=== PATIENT | male | born 1990 | race African-American/Black ===

== ENCOUNTER 2020-12-26 16:24 | Emergency (ER) | payer MEDICAID, OTHER ==
[~2020-12-26] VITALS: Ht 180.3 cm; Wt 81.8 kg
[~2020-12-26 16:24] MED LIST: PAXI20TA OR; TRAZ-252 PO; TRAZ100T OR; no home medications
--- NOTE | 2020-12-26 18:05 | REPVR ---
PROCEDURE INFORMATION: Exam: CT Head Without Contrast Exam date and time: 12/26/2020 5:40 PM Age: 30 years old Clinical indication: Syncope and collapse TECHNIQUE: Imaging protocol: Computed tomography of the head without contrast. Radiation optimization: All CT scans at this facility use at least one of these dose optimization techniques: automated exposure control; mA and/or kV adjustment per patient size (includes targeted exams where dose is matched to clinical indication); or iterative reconstruction. COMPARISON: No relevant prior studies available. FINDINGS: Brain: Normal. No hemorrhage. Unremarkable white matter. No mass effect. Cerebral ventricles: No ventriculomegaly. Paranasal sinuses: Visualized sinuses are unremarkable. No fluid levels. Mastoid air cells: Visualized mastoid air cells are well aerated. Orbital cavity: Left periorbital preseptal soft tissue hematoma. Bones/joints: There is hyperostosis frontalis interna. Soft tissues: Unremarkable. IMPRESSION: 1. Left periorbital preseptal soft tissue hematoma. No skull fracture. 2. No acute intracranial findings. Electronically signed by: Aníbal Watkins On 12/26/2020 18:05:00 PM
--- NOTE | 2020-12-26 18:07 | REPVR ---
PROCEDURE INFORMATION: Exam: CT Maxillofacial Without Contrast Exam date and time: 12/26/2020 5:40 PM Age: 30 years old Clinical indication: Other: Syncope TECHNIQUE: Imaging protocol: Computed tomography images of the face without contrast. Radiation optimization: All CT scans at this facility use at least one of these dose optimization techniques: automated exposure control; mA and/or kV adjustment per patient size (includes targeted exams where dose is matched to clinical indication); or iterative reconstruction. COMPARISON: No relevant prior studies available. FINDINGS: Orbital cavity: Left frontal and preseptal periorbital soft tissue hematoma. Bones/joints: There is hyperostosis frontalis interna. Paranasal sinuses: Mild inflammatory changes in both maxillary sinuses. Soft tissues: Unremarkable. IMPRESSION: 1. Left frontal and preseptal periorbital soft tissue hematoma. No skull fracture. 2. Otherwise unremarkable. Electronically signed by: Aníbal Watkins On 12/26/2020 18:07:23 PM
--- NOTE | 2020-12-26 18:13 | REPVR ---
PROCEDURE INFORMATION: Exam: CT Cervical Spine Without Contrast Exam date and time: 12/26/2020 5:40 PM Age: 30 years old Clinical indication: Other: Syncope TECHNIQUE: Imaging protocol: Computed tomography images of the cervical spine without contrast. Radiation optimization: All CT scans at this facility use at least one of these dose optimization techniques: automated exposure control; mA and/or kV adjustment per patient size (includes targeted exams where dose is matched to clinical indication); or iterative reconstruction. COMPARISON: No relevant prior studies available. FINDINGS: Bones/joints: No acute fracture. Normal alignment. Discs/Spinal canal/Neural foramina: No significant disc protrusion. No severe spinal canal stenosis. No significant neural foraminal narrowing. Sinuses: Mild inflammatory changes in the maxillary sinuses. Lungs: Lung apices are normal. Soft tissues: Unremarkable. IMPRESSION: No acute findings. Electronically signed by: Aníbal Watkins On 12/26/2020 18:12:41 PM
[2020-12-26 18:19] LABS: BASO # 0.1 10^3/uL (0.0-0.2); BASO % 0.6 % (0.0-1.0); EOS % 0.3 % (0.0-3.0); HEMATOCRIT 44.9 % (42.0-52.0); LYMPH # 0.8 10^3/uL (1.5-5.0); LYMPH % 7.1 % (24.0-44.0); MEAN CORPUSCULAR HGB CONC 33.4 g/dl (32.0-36.5); MEAN CORPUSCULAR VOLUME 92.8 fl (80.0-96.0); MONO % 8.6 % (2.0-8.0); NEUTROPHILS # 9.6 10^3/uL (1.5-8.5); PLATELET COUNT, AUTOMATED 297 10^3/uL (150-450); RED BLOOD COUNT 4.84 10^6/uL (4.30-6.10); WHITE BLOOD COUNT 11.5 10^3/uL (4.0-10.0)
--- NOTE | 2020-12-26 18:52 | REP ---
INDICATION: syncope COMPARISON: 12/21/2013. TECHNIQUE: PA/Lateral FINDINGS: Lungs: Clear, no infiltrate. Heart: Normal in size. Mediastinum: Mediastinal silhouette unremarkable. Pleural angles: Unremarkable.. Bones and soft tissues: Unremarkable. IMPRESSION: No acute pulmonary disease. <Electronically signed by Kaushal Cervantes > 12/26/20 [id number]
[2020-12-26 18:55] LABS: BLOOD UREA NITROGEN 7 MG/DL (7-18); CALCIUM LEVEL 10.1 MG/DL (8.5-10.1); CARBON DIOXIDE LEVEL 26 MEQ/L (21-32); CHLORIDE LEVEL 102 MEQ/L (98-107); CK-MB VALUE MASS 3.9 NG/ML (<3.6); CPK CREATINE PHOSPHOKINASE 305 U/L (39-308); CREATININE FOR GFR 1.07 MG/DL (0.70-1.30); ETHYL ALCOHOL (ETHANOL) < 0.003 % (0.000-0.010); FREE T4 1.26 NG/DL (0.76-1.46); GLOMERULAR FILTRATION RATE > 60.0 (>60); GLUCOSE, FASTING 102 MG/DL (70-100); MAGNESIUM LEVEL 2.2 MG/DL (1.8-2.4); MB/CK RELATIVE INDEX 1.28 (< OR =4); POTASSIUM SERUM 4.2 MEQ/L (3.5-5.1); SODIUM LEVEL 137 MEQ/L (136-145); TROPONIN I < 0.02 NG/ML (< 0.10)
[2020-12-26] MEDS ORDERED: NS 1,000 ML IV ONE (19:05)
[2020-12-26 22:00] VITALS: BP 155/96
--- NOTE | 2020-12-29 16:32 | ECGEPIP ---
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
== END 2020-12-26 22:08 | disposition home or self-care (01) ==
LOC: M ED 16:24 → EDBD 16:24 → M ED 22:08
DX: S09.90XA Unspecified injury of head, initial encounter (principal); R55 Syncope and collapse; R00.0 Tachycardia, unspecified; X58.XXXA Exposure to other specified factors, initial encounter; Y92.9 Unspecified place or not applicable; Y93.01 Activity, walking, marching and hiking; Y99.9 Unspecified external cause status; J45.909 Unspecified asthma, uncomplicated; F17.200 Nicotine dependence, unspecified, uncomplicated; Z79.899 Other long term (current) drug therapy; Z88.8 Allergy status to other drugs, medicaments and biological substances

== ENCOUNTER 2023-07-21 20:20 | Inpatient (IN) | payer MEDICAID, SELFPAY ==
[~2023-07-21] VITALS: Ht 172.7 cm; Wt 87.1 kg
[2023-07-21] MEDS ORDERED: LORazepam 2 MG TAB PO PRN (21:10)
[2023-07-21 21:34] LABS: HEMATOCRIT 46.2 % (42.0-52.0); HEMOGLOBIN 15.3 g/dl (13.5-17.5); MEAN CORPUSCULAR HEMOGLOBIN 29.9 pg (27.0-33.0); MEAN CORPUSCULAR HGB CONC 33.1 g/dl (32.0-36.5); MEAN CORPUSCULAR VOLUME 90.2 fl (80.0-96.0); PLATELET COUNT, AUTOMATED 408 10^3/uL (150-450); RED BLOOD COUNT 5.12 10^6/uL (4.30-6.10); WHITE BLOOD COUNT 9.7 10^3/uL (4.0-10.0)
[2023-07-21] MEDS: THIAMINE 100 MG TAB PO SCH (21:39)
[2023-07-21] MEDS ORDERED: HOME MED LIST COMPLETE! XX SCH (21:45)
[2023-07-21 21:52] LABS: BARBITURATES URINE NEGATIVE (NEGATIVE)
[2023-07-21 21:53] LABS: AMPHETAMINES LEVEL URINE NEGATIVE (NEGATIVE); BENZODIAZEPINES URINE NEGATIVE (NEGATIVE); CANNABINOIDS URINE NEGATIVE (NEGATIVE); COCAINE METABOLITE URINE NEGATIVE (NEGATIVE); METHADONE URINE NEGATIVE (NEGATIVE); OPIATES URINE NEGATIVE (NEGATIVE); PHENCYCLIDINE URINE NEGATIVE (NEGATIVE)
[2023-07-21 21:55] LABS: ETHYL ALCOHOL (ETHANOL) 0.287 % (0.000-0.010)
[2023-07-21 21:56] LABS: SALICYLATE LEVEL < 3.0 MG/DL (<30)
[2023-07-21 21:57] LABS: ALBUMIN 4.8 G/DL (3.2-5.2); ALKALINE PHOSPHATASE 86 U/L (46-116); ALT/SGPT 61 U/L (7.0-40); AST/SGOT 41 U/L (<34); BILIRUBIN,DIRECT 0.2 MG/DL (<0.4); BILIRUBIN,TOTAL 0.5 MG/DL (0.3-1.2); BLOOD UREA NITROGEN 13 MG/DL (9-23); CALCIUM LEVEL 9.8 MG/DL (8.5-10.1); CARBON DIOXIDE LEVEL 24 MMOL/L (20-31); CHLORIDE LEVEL 105 MMOL/L (98-107); CREATININE FOR GFR 0.85 MG/DL (0.70-1.30); GLOMERULAR FILTRATION RATE > 60.0 (>60); GLUCOSE, FASTING 93 MG/DL (60-100); POTASSIUM SERUM 4.3 MMOL/L (3.5-5.1); SODIUM LEVEL 137 MMOL/L (136-145)
[2023-07-22] MEDS: FOLIC ACID 1MG TAB PO SCH (09:00)
[2023-07-22] MEDS ORDERED: FOLIC ACID 1MG TAB PO SCH (09:00)
[2023-07-22] MEDS: THIAMINE 100 MG TAB PO SCH (09:00)
[2023-07-22] MEDS ORDERED: MULTIVITAMINS/MINERALS THERAP 1 TAB PO SCH (09:00)
[2023-07-22] MEDS: MULTIVITAMINS/MINERALS THERAP 1 TAB PO SCH (09:00)
[2023-07-22] MEDS ORDERED: MAALOX 30 ML SUSP *UDC PO PRN ×2 (11:30→11:35)
[2023-07-22] MEDS ORDERED: traZODone 50 MG TAB PO PRN (11:30)
[2023-07-22] MEDS ORDERED: diphenhydrAMINE 25MG CAP PO PRN (11:30)
[2023-07-22] MEDS ORDERED: MOM 30ML SUSPENSION UDC PO PRN ×2 (11:30→11:35)
[2023-07-22] MEDS ORDERED: ACETAMINOPHEN TAB 650MG DOSE (2X325MG) PO PRN (11:30)
[2023-07-22] MEDS ORDERED: IBUPROFEN 400MG TAB PO PRN (11:30)
[2023-07-22 13:41] VITALS: BP 152/91; TEMP 98; O2SAT 99
[2023-07-22 13:58] VITALS: BP 152/91
[2023-07-22] MEDS: traZODone 50 MG TAB PO PRN (20:35)
[2023-07-22 22:21] VITALS: BP 128/68
[2023-07-23 06:26] VITALS: BP 129/65
[2023-07-23 06:29] VITALS: BP 129/65; TEMP 98.4; O2SAT 99
[2023-07-23] MEDS: NICOTINE 21MG/24HR 1 EA TRANSDERMAL TD SCH (10:06)
[2023-07-23 16:07] VITALS: BP 138/87; TEMP 98.8; O2SAT 100
[2023-07-23] MEDS: ACETAMINOPHEN TAB 650MG DOSE (2X325MG) PO PRN (17:17)
[2023-07-23 17:33] VITALS: BP 141/89
[2023-07-23] MEDS: LORazepam 2 MG TAB PO PRN (17:39)
[2023-07-24 06:18] VITALS: BP 114/61; TEMP 98.2; O2SAT 99
[2023-07-24] MEDS: PARoxetine 20MG TABLET PO SCH (10:59)
[2023-07-24 16:28] VITALS: BP 138/84; TEMP 98.3; O2SAT 99
[2023-07-24 21:52] VITALS: BP 120/68
[2023-07-25 06:07] VITALS: BP 124/70
[2023-07-25] MEDS: diphenhydrAMINE 25MG CAP PO PRN (06:12)
[2023-07-25 06:16] VITALS: BP 124/70; TEMP 98.4; O2SAT 99
[2023-07-25 18:19] VITALS: BP 139/84; TEMP 98.3
[2023-07-26 06:20] VITALS: BP 106/63; TEMP 98.4; O2SAT 97
[2023-07-26] MEDS: IBUPROFEN 400MG TAB PO PRN (09:10)
[2023-07-26] MEDS: hydrOXYzine 50 MG TAB PO PRN (12:38)
[2023-07-26 18:48] VITALS: BP 127/71; TEMP 98.2
[2023-07-27 17:23] VITALS: BP 123/75; TEMP 97.8
[2023-07-27] MEDS: traZODone 100 MG TAB PO PRN (20:07)
[2023-07-28 06:20] VITALS: BP 136/64; TEMP 98.1; O2SAT 98
[2023-07-28] MEDS: ACAMPROSATE CALCIUM 333MG TABLET (CAMPRAL) PO SCH (09:36)
[2023-07-28 16:42] VITALS: BP 137/68; TEMP 97.2; O2SAT 99
[2023-07-29 16:32] VITALS: BP 127/62; TEMP 98.2; O2SAT 100
[2023-07-30 16:12] VITALS: BP 131/65; TEMP 98.2; O2SAT 100
[2023-07-31 16:03] VITALS: BP 118/68; TEMP 98.3; O2SAT 100
[2023-08-01] MEDS ORDERED: TRAZ-257 PO (10:16)
[2023-08-01] MEDS ORDERED: PARO20TA3 PO (10:16)
[2023-08-01] MEDS ORDERED: Multivitamins PO (10:16)
[2023-08-01] MEDS ORDERED: NICO21PAT TD (10:16)
[2023-08-01] MEDS ORDERED: HYDR50TA70 PO (10:16)
[2023-08-01] MEDS ORDERED: ACAM0.05 PO (10:16)
[2023-08-01] MEDS ORDERED: THERTAB52 PO (10:17)
[2023-08-01] MEDS: ACAMPROSATE CALCIUM 333MG TABLET (CAMPRAL) PO SCH (15:50)
[2023-08-01 17:57] VITALS: BP 119/69; TEMP 98.4
== END 2023-08-02 10:15 | disposition other institution (70) | DRG 754 ==
LOC: M ED 20:20 → M ED INP 07-22 11:32 → M PSY 07-22 13:23
PROVIDERS: ADMIT Psychiatry & Neurology Psychiatry; ATTEND Student in an Organized Health Care Education/Training Program
DX: F43.21 Adjustment disorder with depressed mood (principal); J45.909 Unspecified asthma, uncomplicated; F10.20 Alcohol dependence, uncomplicated; R45.851 Suicidal ideations; F17.200 Nicotine dependence, unspecified, uncomplicated; Z11.52 Encounter for screening for COVID-19; Z88.8 Allergy status to other drugs, medicaments and biological substances; Z56.0 Unemployment, unspecified; Z59.00 Homelessness unspecified; Z65.3 Problems related to other legal circumstances; Z63.0 Problems in relationship with spouse or partner; Z81.8 Family history of other mental and behavioral disorders; Z81.1 Family history of alcohol abuse and dependence; Z81.3 Family history of other psychoactive substance abuse and dependence

== ENCOUNTER 2023-08-25 12:56 | Inpatient (IN) | payer MEDICAID, OTHER ==
[~2023-08-25] VITALS: Ht 177.8 cm; Wt 83.1 kg
[~2023-08-25 12:56] MED LIST changes: +ACAM0.05 PO; +HYDR50TA70 PO; +Multivitamins PO; +NICO21PAT TD; +PARO20TA3 PO; +THERTAB52 PO; +TRAZ-257 PO
[2023-08-25 14:02] LABS: HEMATOCRIT 41.3 % (42.0-52.0); HEMOGLOBIN 13.9 g/dl (13.5-17.5); MEAN CORPUSCULAR HEMOGLOBIN 30.2 pg (27.0-33.0); MEAN CORPUSCULAR HGB CONC 33.7 g/dl (32.0-36.5); MEAN CORPUSCULAR VOLUME 89.6 fl (80.0-96.0); PLATELET COUNT, AUTOMATED 278 10^3/uL (150-450); RED BLOOD COUNT 4.61 10^6/uL (4.30-6.10); WHITE BLOOD COUNT 8.4 10^3/uL (4.0-10.0)
[2023-08-25 14:26] LABS: AMPHETAMINES LEVEL URINE NEGATIVE (NEGATIVE); BARBITURATES URINE NEGATIVE (NEGATIVE); CANNABINOIDS URINE NEGATIVE (NEGATIVE); METHADONE URINE NEGATIVE (NEGATIVE); OPIATES URINE NEGATIVE (NEGATIVE); PHENCYCLIDINE URINE NEGATIVE (NEGATIVE)
[2023-08-25 14:27] LABS: BENZODIAZEPINES URINE NEGATIVE (NEGATIVE); COCAINE METABOLITE URINE NEGATIVE (NEGATIVE)
[2023-08-25 14:30] LABS: ALKALINE PHOSPHATASE 86 U/L (46-116); ALT/SGPT 48 U/L (7.0-40); AST/SGOT 46 U/L (<34); BILIRUBIN,DIRECT 0.2 MG/DL (<0.4); BILIRUBIN,TOTAL 0.5 MG/DL (0.3-1.2); BLOOD UREA NITROGEN 9 MG/DL (9-23); CALCIUM LEVEL 9.2 MG/DL (8.5-10.1); CARBON DIOXIDE LEVEL 22 MMOL/L (20-31); CHLORIDE LEVEL 104 MMOL/L (98-107); CPK CREATINE PHOSPHOKINASE 157 U/L (46-171); CREATININE FOR GFR 0.79 MG/DL (0.70-1.30); GLOMERULAR FILTRATION RATE > 60.0 (>60); GLUCOSE, FASTING 112 MG/DL (60-100); POTASSIUM SERUM 3.7 MMOL/L (3.5-5.1); SALICYLATE LEVEL < 3.0 MG/DL (<30); SODIUM LEVEL 141 MMOL/L (136-145); TOTAL PROTEIN 7.1 G/DL (5.7-8.2)
[2023-08-25 15:00] LABS: THYROID STIMULATING HORMONE 0.497 uIU/ML (0.55-4.78)
[2023-08-25 15:23] LABS: ETHYL ALCOHOL (ETHANOL) 0.307 % (0.000-0.010)
[2023-08-25] MEDS: LORazepam 2 MG TAB PO PRN (15:55)
[2023-08-25] MEDS: ONDANSETRON 4MG ORAL DISINTEGRATING TAB PO ONE (15:56)
[2023-08-25] MEDS: NS 1,000 ML IV ONE (18:34)
[2023-08-25] MEDS: THIAMINE 100 MG TAB PO SCH (20:57)
[2023-08-25] MEDS ORDERED: ACAM0.05 PO (21:27)
[2023-08-25] MEDS ORDERED: TRAZ-189 PO (21:28)
[2023-08-25] MEDS ORDERED: HYDR50TA70 PO (21:28)
[2023-08-25] MEDS ORDERED: NICO21DI38 TD (21:28)
[2023-08-25] MEDS ORDERED: PARO20TA4 PO (21:28)
[2023-08-25] MEDS ORDERED: HOME MED LIST COMPLETE! XX SCH (21:35)
[2023-08-25] MEDS ORDERED: IBUPROFEN 400MG TAB PO PRN (23:10)
[2023-08-25] MEDS ORDERED: ACETAMINOPHEN TAB 650MG DOSE (2X325MG) PO PRN (23:10)
[2023-08-25] MEDS ORDERED: MOM 30ML SUSPENSION UDC PO PRN (23:10)
[2023-08-25] MEDS ORDERED: MAALOX 30 ML SUSP *UDC PO PRN (23:10)
[2023-08-25] MEDS ORDERED: LORazepam 2 MG TAB PO PRN (23:10)
[2023-08-25] MEDS ORDERED: NICOTINE 21MG/24HR 1 EA TRANSDERMAL TD PRN (23:10)
[2023-08-26] VITALS (7 sets, daily range): BP systolic 128–160; BP diastolic 58–100; TEMP 97–98.4; O2SAT 97–99
[2023-08-26] MEDS ORDERED: MULTIVITAMINS/MINERALS THERAP 1 TAB PO SCH (09:00)
[2023-08-26] MEDS ORDERED: FOLIC ACID 1MG TAB PO SCH (09:00)
[2023-08-26] MEDS: FOLIC ACID 1MG TAB PO SCH (09:45)
[2023-08-26] MEDS: MULTIVITAMINS/MINERALS THERAP 1 TAB PO SCH (09:45)
[2023-08-26] MEDS: OXAZEPAM 15MG CAP PO SCH (09:45)
[2023-08-26] MEDS: THIAMINE 100 MG TAB PO SCH (09:46)
[2023-08-26] MEDS: PARoxetine 20MG TABLET PO SCH (09:46)
[2023-08-26] MEDS: diazePAM 5MG TABLET PO ONE (15:48)
[2023-08-26] MEDS: METOPROLOL TART 25 MG TABLET PO ONE (15:50)
[2023-08-26] MEDS ORDERED: cloNIDine 0.1MG TABLET PO SCH (16:00)
[2023-08-26] MEDS: cloNIDine 0.1MG TABLET PO SCH (18:06)
[2023-08-26] MEDS: METOPROLOL TART 50 MG TAB PO SCH (20:26)
[2023-08-26] MEDS: traZODone 100 MG TAB PO PRN (21:00)
[2023-08-27 06:00] VITALS: BP 112/67; TEMP 97.3; O2SAT 97
[2023-08-27] MEDS: OLANZapine ORAL DISINTEGRATING TAB 5MG PO PRN (13:03)
[2023-08-27 14:00] VITALS: BP 134/67
[2023-08-27 15:28] VITALS: BP 105/60; TEMP 98.1; O2SAT 100
[2023-08-28 06:25] VITALS: BP 126/72; TEMP 97.5; O2SAT 97
[2023-08-28 15:23] VITALS: BP 124/76; TEMP 98.4; O2SAT 98
[2023-08-28 23:59] VITALS: BP 132/92
[2023-08-29 05:53] VITALS: BP 132/87; TEMP 97.9; O2SAT 98
[2023-08-29] MEDS ORDERED: CLONI1TA PO (08:30)
[2023-08-29] MEDS ORDERED: LOPR1TAB6 PO (08:30)
[2023-08-29 09:00] VITALS: BP 107/59
[2023-08-29 09:04] VITALS: BP 107/59
== END 2023-08-29 10:42 | disposition home or self-care (01) | DRG 754 ==
LOC: EDBD 12:56 → M ED 12:56 → M ED INP 23:10 → M PSY 08-26 02:21
PROVIDERS: ADMIT Student in an Organized Health Care Education/Training Program; ATTEND Student in an Organized Health Care Education/Training Program
DX: F32.A Depression, unspecified (principal); R45.851 Suicidal ideations; F10.10 Alcohol abuse, uncomplicated; Z88.8 Allergy status to other drugs, medicaments and biological substances; Z79.899 Other long term (current) drug therapy; J45.909 Unspecified asthma, uncomplicated; F17.200 Nicotine dependence, unspecified, uncomplicated

== ENCOUNTER 2023-09-13 15:17 | Emergency (ER) | payer MEDICAID, OTHER ==
[~2023-09-13] VITALS: Ht 172.7 cm; Wt 79.5 kg
[~2023-09-13 15:17] MED LIST changes: +CLONI1TA PO; +LOPR1TAB6 PO; +NICO21DI38 TD; +PARO20TA4 PO; +TRAZ-189 PO
[2023-09-13 16:36] LABS: HEMATOCRIT 43.2 % (42.0-52.0); HEMOGLOBIN 14.5 g/dl (13.5-17.5); MEAN CORPUSCULAR HEMOGLOBIN 30.3 pg (27.0-33.0); MEAN CORPUSCULAR HGB CONC 33.6 g/dl (32.0-36.5); MEAN CORPUSCULAR VOLUME 90.4 fl (80.0-96.0); PLATELET COUNT, AUTOMATED 277 10^3/uL (150-450); RED BLOOD COUNT 4.78 10^6/uL (4.30-6.10); WHITE BLOOD COUNT 8.3 10^3/uL (4.0-10.0)
[2023-09-13 16:58] LABS: AMPHETAMINES LEVEL URINE NEGATIVE (NEGATIVE); BARBITURATES URINE NEGATIVE (NEGATIVE); BENZODIAZEPINES URINE NEGATIVE (NEGATIVE); CANNABINOIDS URINE NEGATIVE (NEGATIVE); COCAINE METABOLITE URINE NEGATIVE (NEGATIVE); METHADONE URINE NEGATIVE (NEGATIVE); OPIATES URINE NEGATIVE (NEGATIVE); PHENCYCLIDINE URINE NEGATIVE (NEGATIVE)
[2023-09-13 17:02] LABS: ALBUMIN 4.5 G/DL (3.2-5.2); ALKALINE PHOSPHATASE 99 U/L (46-116); ALT/SGPT 91 U/L (7.0-40); AST/SGOT 92 U/L (<34); BILIRUBIN,DIRECT 0.2 MG/DL (<0.4); BILIRUBIN,TOTAL 0.8 MG/DL (0.3-1.2); BLOOD UREA NITROGEN 11 MG/DL (9-23); CALCIUM LEVEL 9.6 MG/DL (8.5-10.1); CARBON DIOXIDE LEVEL 23 MMOL/L (20-31); CHLORIDE LEVEL 103 MMOL/L (98-107); CREATININE FOR GFR 0.88 MG/DL (0.70-1.30); GLOMERULAR FILTRATION RATE > 60.0 (>60); GLUCOSE, FASTING 85 MG/DL (60-100); POTASSIUM SERUM 4.1 MMOL/L (3.5-5.1); SALICYLATE LEVEL < 3.0 MG/DL (<30); SODIUM LEVEL 137 MMOL/L (136-145); TOTAL PROTEIN 7.6 G/DL (5.7-8.2)
[2023-09-13 17:05] LABS: THYROID STIMULATING HORMONE 1.435 uIU/ML (0.55-4.78)
[2023-09-13] MEDS ORDERED: CLON0.3T PO (17:06)
[2023-09-13] MEDS ORDERED: METO50TA7 PO (17:06)
[2023-09-13] MEDS ORDERED: HOME MED LIST COMPLETE! XX SCH ×2 (17:10)
[2023-09-13 17:43] LABS: ETHYL ALCOHOL (ETHANOL) 0.369 % (0.000-0.010)
[2023-09-13] MEDS ORDERED: traZODone 100 MG TAB PO PRN (19:50)
[2023-09-13 20:35] VITALS: BP 136/77
[2023-09-13] MEDS: METOPROLOL TART 50 MG TAB PO SCH (20:35)
[2023-09-13] MEDS: hydrOXYzine 50 MG TAB PO PRN (20:35)
[2023-09-13] MEDS: PARoxetine 20MG TABLET PO SCH (20:35)
[2023-09-13] MEDS: cloNIDine 0.1MG TABLET PO SCH (20:36)
[2023-09-13] MEDS: ACAMPROSATE CALCIUM 333MG TABLET (CAMPRAL) PO SCH (20:47)
[2023-09-14] MEDS ORDERED: LORazepam 2 MG TAB PO PRN (07:20)
[2023-09-14] MEDS ORDERED: MULTIVITAMINS/MINERALS THERAP 1 TAB PO SCH (09:00)
[2023-09-14] MEDS ORDERED: THIAMINE 100 MG TAB PO SCH (09:00)
[2023-09-14] MEDS ORDERED: FOLIC ACID 1MG TAB PO SCH (09:00)
[2023-09-14 11:56] VITALS: BP 123/84; TEMP 98.3; O2SAT 100
== END 2023-09-14 11:58 | disposition home or self-care (01) ==
LOC: M ED 15:17
DX: R10.10 Upper abdominal pain, unspecified (principal); J45.909 Unspecified asthma, uncomplicated; F41.9 Anxiety disorder, unspecified; F32.9 Major depressive disorder, single episode, unspecified; Z79.899 Other long term (current) drug therapy; Z88.8 Allergy status to other drugs, medicaments and biological substances

== ENCOUNTER → 2023-09-28 | Outpatient (REF) | payer OTHER ==
[~2023-09-28] MED LIST changes: +CLON0.3T PO; +METO50TA7 PO
[2023-09-28 19:02] LABS: HEMOGLOBIN A1c 5.3 % (4.0-6.0)
[2023-09-28 19:07] LABS: THYROID STIMULATING HORMONE 2.239 uIU/ML (0.55-4.78); TOTAL 25(OH) VITAMIN D 11.5 NG/ML (20.0-100.0)
[2023-09-28 19:09] LABS: ALBUMIN 4.5 G/DL (3.2-5.2); ALKALINE PHOSPHATASE 100 U/L (46-116); ALT/SGPT 79 U/L (7.0-40); AST/SGOT 61 U/L (<34); BLOOD UREA NITROGEN 14 MG/DL (9-23); CALCIUM LEVEL 10.5 MG/DL (8.5-10.1); CARBON DIOXIDE LEVEL 24 MMOL/L (20-31); CHLORIDE LEVEL 101 MMOL/L (98-107); CHOLESTEROL LEVEL 232 MG/DL (<200); CHOLESTEROL RISK RATIO 3.16 (<5); CREATININE FOR GFR 0.94 MG/DL (0.70-1.30); GLOMERULAR FILTRATION RATE > 60.0 (>60); GLUCOSE, FASTING 74 MG/DL (60-100); HDL CHOLESTEROL 73.3 MG/DL (>40); LDL CHOLESTEROL 132.1 MG/DL (<100); NON-HDL-C 158.7 MG/DL; POTASSIUM SERUM 4.3 MMOL/L (3.5-5.1); SODIUM LEVEL 137 MMOL/L (136-145); TOTAL PROTEIN 7.6 G/DL (5.7-8.2); TRIGLYCERIDES LEVEL 133 MG/DL (<150)
== END ==
LOC: M LAB REF 16:36
PROVIDERS: ATTEND Physician Assistant
DX: Z11.9 Encounter for screening for infectious and parasitic diseases, unspecified (principal); E55.9 Vitamin D deficiency, unspecified; Z13.220 Encounter for screening for lipoid disorders; Z13.29 Encounter for screening for other suspected endocrine disorder; Z13.1 Encounter for screening for diabetes mellitus

== ENCOUNTER 2024-07-10 22:05 | Emergency (ER) | payer OTHER, SELFPAY ==
[~2024-07-10] VITALS: Ht 177.8 cm; Wt 77.1 kg
[2024-07-10 22:07] VITALS: TEMP 95.9
[2024-07-10] MEDS: ONDANSETRON 4MG 2ML VIAL IV ONE (22:20)
[2024-07-10] MEDS: LEVALBUTEROL 1.25MG 0.5ML CONCENTRATE NEB NEB ONE (22:34)
[2024-07-10] MEDS: NS (Normal Saline) 0.9% 1,000 ML IV ONE (22:50)
[2024-07-11] MEDS: NS (Normal Saline) 0.9% 1,000 ML IV ONE (01:02)
[2024-07-11 01:24] LABS: AMPHETAMINES LEVEL URINE NEGATIVE (NEGATIVE); BARBITURATES URINE NEGATIVE (NEGATIVE); BENZODIAZEPINES URINE NEGATIVE (NEGATIVE); CANNABINOIDS URINE NEGATIVE (NEGATIVE); COCAINE METABOLITE URINE NEGATIVE (NEGATIVE); METHADONE URINE NEGATIVE (NEGATIVE); OPIATES URINE NEGATIVE (NEGATIVE); PHENCYCLIDINE URINE NEGATIVE (NEGATIVE)
[2024-07-11 04:08] VITALS: BP 124/78; O2SAT 97
== END 2024-07-11 04:14 | disposition home or self-care (01) ==
LOC: M ED 22:05
DX: T40.1X2A Poisoning by heroin, intentional self-harm, initial encounter (principal); J45.901 Unspecified asthma with (acute) exacerbation; I10 Essential (primary) hypertension; F32.A Depression, unspecified; F17.200 Nicotine dependence, unspecified, uncomplicated
CPT/HCPCS: 71045; 80307; 87486; 87581; 87633; 87798; 94640; 96361; 96374; 99284; J2405

== ENCOUNTER 2024-08-16 20:23 | Inpatient (IN) | payer OTHER ==
[~2024-08-16] VITALS: Ht 180.3 cm; Wt 73.9 kg
[2024-08-16 21:07] LABS: HEMATOCRIT 42.1 % (42.0-52.0); HEMOGLOBIN 13.8 g/dl (13.5-17.5); MEAN CORPUSCULAR HEMOGLOBIN 29.5 pg (27.0-33.0); MEAN CORPUSCULAR HGB CONC 32.8 g/dl (32.0-36.5); PLATELET COUNT, AUTOMATED 436 10^3/uL (150-450); RED BLOOD COUNT 4.68 10^6/uL (4.30-6.10); WHITE BLOOD COUNT 10.8 10^3/uL (4.0-10.0)
[2024-08-16] MEDS ORDERED: HOME MED LIST COMPLETE! XX SCH (21:30)
[2024-08-16 21:31] LABS: ETHYL ALCOHOL (ETHANOL) 0.297 % (0.000-0.010)
[2024-08-16 21:33] LABS: ALBUMIN 4.2 G/DL (3.2-5.2); ALKALINE PHOSPHATASE 94 U/L (40-129); ALT/SGPT 13 U/L (7.0-40); AST/SGOT 16 U/L (<34); BILIRUBIN,DIRECT 0.1 MG/DL (<0.4); BILIRUBIN,TOTAL 0.4 MG/DL (0.3-1.2); BLOOD UREA NITROGEN 10 MG/DL (9-23); CALCIUM LEVEL 9.8 MG/DL (8.5-10.1); CARBON DIOXIDE LEVEL 24 MMOL/L (20-31); CHLORIDE LEVEL 102 MMOL/L (98-107); CREATININE FOR GFR 0.77 MG/DL (0.70-1.30); GLOMERULAR FILTRATION RATE > 90.0 (>60); GLUCOSE, FASTING 79 MG/DL (60-100); POTASSIUM SERUM 4.4 MMOL/L (3.5-5.1); SALICYLATE LEVEL < 3.0 MG/DL (<30); SODIUM LEVEL 140 MMOL/L (136-145); TOTAL PROTEIN 7.5 G/DL (5.7-8.2)
[2024-08-16 21:35] LABS: THYROID STIMULATING HORMONE 0.167 uIU/ML (0.55-4.78)
[2024-08-16 21:54] LABS: AMPHETAMINES LEVEL URINE NEGATIVE (NEGATIVE); BARBITURATES URINE NEGATIVE (NEGATIVE); BENZODIAZEPINES URINE NEGATIVE (NEGATIVE); CANNABINOIDS URINE NEGATIVE (NEGATIVE); COCAINE METABOLITE URINE NEGATIVE (NEGATIVE); METHADONE URINE NEGATIVE (NEGATIVE); OPIATES URINE NEGATIVE (NEGATIVE); PHENCYCLIDINE URINE NEGATIVE (NEGATIVE)
[2024-08-17] MEDS ORDERED: MAALOX 30 ML SUSP *UDC PO PRN (17:10)
[2024-08-17] MEDS ORDERED: traZODone 50 MG TAB PO PRN (17:10)
[2024-08-17] MEDS ORDERED: IBUPROFEN 400MG TAB PO PRN (17:10)
[2024-08-17] MEDS ORDERED: OLANZapine 5 MG TAB PO PRN (17:10)
[2024-08-17] MEDS ORDERED: ACETAMINOPHEN 325 MG TAB PO PRN (17:10)
[2024-08-17] MEDS ORDERED: MOM 30ML SUSPENSION UDC PO PRN (17:10)
[2024-08-17 17:13] VITALS: BP 153/84
[2024-08-17 17:23] VITALS: BP 153/84; TEMP 98.7; O2SAT 98
[2024-08-17] MEDS: LORazepam 2 MG TAB PO PRN (17:34)
[2024-08-17] MEDS: THIAMINE 100 MG TAB PO ONE (17:34)
[2024-08-17] MEDS: MULTIVITAMINS/MINERALS THERAP 1 TAB PO SCH (17:34)
[2024-08-17] MEDS: NICOTINE 21MG/24HR 1 EA TRANSDERMAL TD SCH (17:34)
[2024-08-17] MEDS: FOLIC ACID 1MG TAB PO SCH (17:35)
[2024-08-17 18:57] VITALS: BP 147/86; TEMP 98.8; O2SAT 99
[2024-08-18 01:00] VITALS: BP 120/72
[2024-08-18 06:44] VITALS: BP 125/77
[2024-08-18 06:45] VITALS: BP 125/77; TEMP 98.8; O2SAT 99
[2024-08-18] MEDS: THIAMINE 100 MG TAB PO SCH (09:59)
[2024-08-18] MEDS: PARoxetine 20MG TABLET PO SCH (11:14)
[2024-08-18] MEDS: diphenhydrAMINE 25MG CAP PO PRN (13:04)
[2024-08-18 15:27] VITALS: BP 122/68
[2024-08-18] MEDS: QUEtiapine FUMARATE 50MG TAB PO SCH (20:14)
[2024-08-19 06:53] VITALS: BP 131/77; TEMP 98.3; O2SAT 98
[2024-08-19 07:27] LABS: FREE T4 1.34 NG/DL (0.89-1.76)
[2024-08-19 07:28] LABS: THYROID STIMULATING HORMONE 1.15 uIU/ML (0.55-4.78)
[2024-08-19 14:25] VITALS: BP 120/77; TEMP 97.2; O2SAT 99
[2024-08-20 06:20] VITALS: BP 116/73; TEMP 98.1; O2SAT 100
[2024-08-21] MEDS ORDERED: QUET50TA4 PO (02:03)
[2024-08-21] MEDS ORDERED: PARO20TA4 PO (02:03)
== END 2024-08-21 11:24 | disposition home or self-care (01) | DRG 751 ==
LOC: M ED 20:23 → M ED INP 08-17 13:53 → M PSY 08-17 16:11
PROVIDERS: ADMIT Psychiatry & Neurology Psychiatry; ATTEND Psychiatry & Neurology Psychiatry
DX: F33.1 Major depressive disorder, recurrent, moderate (principal); F41.1 Generalized anxiety disorder; R45.851 Suicidal ideations; F10.10 Alcohol abuse, uncomplicated; F17.210 Nicotine dependence, cigarettes, uncomplicated; F17.290 Nicotine dependence, other tobacco product, uncomplicated; Z56.0 Unemployment, unspecified; Z79.899 Other long term (current) drug therapy; Z88.8 Allergy status to other drugs, medicaments and biological substances

== ENCOUNTER 2024-12-02 21:56 | Emergency (ER) | payer MEDICAID, OTHER ==
[~2024-12-02 21:56] MED LIST changes: +QUET50TA4 PO
[2024-12-02 23:10] LABS: PLATELET COUNT, AUTOMATED 422 10^3/uL (150-450)
[2024-12-02 23:43] LABS: ETHYL ALCOHOL (ETHANOL) 0.088 % (0.000-0.010)
[2024-12-02 23:45] LABS: SALICYLATE LEVEL < 3.0 MG/DL (<30)
[2024-12-02 23:46] LABS: ALT/SGPT 21 U/L (7.0-40); AST/SGOT 24 U/L (<34); CALCIUM LEVEL 9.6 MG/DL (8.5-10.1); CARBON DIOXIDE LEVEL 23 MMOL/L (20-31); CHLORIDE LEVEL 109 MMOL/L (98-107); CREATININE FOR GFR 0.94 MG/DL (0.70-1.30); GLOMERULAR FILTRATION RATE > 90.0 (>60); POTASSIUM SERUM 4.4 MMOL/L (3.5-5.1); SODIUM LEVEL 143 MMOL/L (136-145)
[2024-12-03 02:22] LABS: BARBITURATES URINE NEGATIVE (NEGATIVE); BENZODIAZEPINES URINE NEGATIVE (NEGATIVE); CANNABINOIDS URINE NEGATIVE (NEGATIVE); COCAINE METABOLITE URINE NEGATIVE (NEGATIVE); METHADONE URINE NEGATIVE (NEGATIVE); OPIATES URINE NEGATIVE (NEGATIVE); PHENCYCLIDINE URINE NEGATIVE (NEGATIVE)
[2024-12-03 02:27] LABS: AMPHETAMINES LEVEL URINE POSITIVE (NEGATIVE)
[2024-12-03 03:00] VITALS: BP 128/86; TEMP 98.5; O2SAT 98
== END 2024-12-03 03:00 | disposition home or self-care (01) ==
LOC: M ED 21:56
DX: F19.10 Other psychoactive substance abuse, uncomplicated (principal); F43.0 Acute stress reaction; F17.200 Nicotine dependence, unspecified, uncomplicated; Z79.899 Other long term (current) drug therapy; Z88.8 Allergy status to other drugs, medicaments and biological substances